=== PATIENT | female | born 1985 | race Caucasian/White ===

== ENCOUNTER 2017-03-25 15:45 | Day surgery (SDC) | payer BC ==
[~2017-03-25] VITALS: Ht 167.6 cm; Wt 68.0 kg
[2017-03-25 15:52] VITALS: BP 122/63; PULSE 92; RESP 18; TEMP 98.2; O2SAT 99
[2017-03-25] MEDS ORDERED: SODIUM CHLOR 0.9% 1000 ML INJ 1,000 ML IV ONE (16:15)
--- NOTE | 2017-03-25 16:15 | PD ---
HPI Chief Complaint: Foreign Body Time Seen by Provider: 16:07 Travel History International Travel<30 days: No Contact w/Intl Traveler<30days: No Traveled to known affect area: No History of Present Illness HPI ABOUT 2HRS AGO PATIENT WAS EATING LARGE PIECE OF STEAK BOLUS AND APPARENTLY BECAME STUCK, POINTS TO STERNAL NOTCH LOCATION OF WHERE SHE FEELS THE PRESSURE, HAS TO CONTINUOUSLY SPIT BECAUSE SHE CANNOT SWALLOW HER OWN SECRETIONS. DENIES ANY CHEST PAIN DENIES ANY DRUG ALELRGY, DENIES ANY MAJOR MEDICAL H/O EXCEPT ESOPHAGITIS DIAGNOSED WITH ENDOSCOPY THAT SHE HAD DONE A COUPLE OF YEARS BEFORE. THIS IS HER FIRST EPISODE, PATIENT ATTEMPTED TO SELF INDUCED EMESIS WHICH DID NOT CAUSE ANY RELIEF WHATSOEVER PFSH Past Medical History Medical History: Denies Significant Hx Diminished Hearing: No Immunizations Current: No Tetanus Vaccination: < 5 Years Influenza Vaccination: No ?: Not LMP: 03-20-17 Past Surgical History Surgical History: No Previous Surgery Social History Alcohol Use: No Tobacco Use: No Substance Use: No Allergies-Medications (Allergen,Severity, Reaction): Coded Allergies: Egg Allergy (Verified Adverse Reaction, Unknown, NAUSEA, 03/25/17) Reported Meds & Prescriptions Reported Meds & Active Scripts Active No Active Prescriptions or Reported Medications Review of Systems Except as stated in HPI: all other systems reviewed are Neg Gastrointestinal: Positive: Dysphagia Physical Exam Narrative GENERAL: SKIN: Warm and dry. HEAD: Atraumatic. Normocephalic. EYES: Pupils equal and round. No scleral icterus. No injection or drainage. ENT: No nasal bleeding or discharge. Mucous membranes pink and moist. NOT TOLERATING HER OWN SECRETIONS NECK: Trachea midline. No JVD. NO STRIDOR CARDIOVASCULAR: Regular rate and rhythm. RESPIRATORY: No accessory muscle use. Clear to auscultation. Breath sounds equal bilaterally. NO WHEEZING AND NO PALPABLE CREPITUS GASTROINTESTINAL: Abdomen soft, non-tender, nondistended. MUSCULOSKELETAL: Extremities without clubbing, cyanosis, or edema. No obvious deformities. NEUROLOGICAL: Awake and alert. No obvious cranial nerve deficits. Motor grossly within normal limits. Five out of 5 muscle strength in the arms and legs. Normal speech. PSYCHIATRIC: Appropriate mood and affect; insight and judgment normal. Data Data Last Documented VS Vital Signs Date Time Temp Pulse Resp B/P Pulse Ox O2 Delivery O2 Flow Rate FiO2 03/25/17 15:52 98.2 92 18 122/63 99 Orders Complete Blood Count With Diff (03/25/17 16:15) Comprehensive Metabolic Panel (03/25/17 16:15) Iv Access Insert/Monitor (03/25/17 16:15) Sodium Chlor 0.9% 1000 Ml Inj (Ns 1000 M (03/25/17 16:15) Prothrombin Time / Inr (Pt) (03/25/17 16:16) Act Partial Throm Time (Ptt) (03/25/17 16:16) Soft Tissue Neck (03/25/17 ) Chest, Single Ap (03/25/17 ) MDM Medical Decision Making Medical Screen Exam Complete: Yes Emergency Medical Condition: Yes Medical Record Reviewed: Yes Differential Diagnosis EPIGLOTITIS V CRICOPHARYNGEUS ESOPHAGEAL OBSTRUCTION V PNEUMOMEDIASTINUM Narrative Course IMMEDIATELY AFTER SEEING PATIENT CALL TO GI DUE TO INABILITY TO HANDLE SALIVARY SECRETIONS SUGGESTION FULL OBSTRUCTION, NO AIRWAY/BREATHING/CIRCULATORY DYSFUNCTION AT THIS POINT BASED ON EXAMINATION. Physician Communication Physician Communication DISCUSSED CASE FULLY WITH DR DE LA ROSA (GI) WHO WILL TAKE ON CASE AND ATTEMPT TO REMOVE VIA GI SUITE/ENDOSCOPY Diagnosis Primary Impression: ESOPHAGEAL FOOD BOLUS REQUIRING ENDOSCOPIC REMOVAL Scripts No Active Prescriptions or Reported Meds Bar Ambrocio MD Mar 25, 2017 16:15
[2017-03-25 16:31] LABS: AUTOMATED NEUTROPHIL # 4.8 TH/MM3 (1.8-7.7); BASOPHIL # 0.1 TH/MM3 (0-0.2); BASOPHIL % 1.8 % (0.0-2.0); EOSINOPHIL # 0.2 TH/MM3 (0-0.4); HEMATOCRIT 39.6 % (35.0-46.0); HEMO FLAGS DIFF FINAL; LYMPH % 25.7 % (9.0-44.0); MEAN CELL VOLUME 87.1 FL (80.0-100.0); MEAN CORPUSCULAR HEMOGLOBIN 30.4 PG (27.0-34.0); MEAN CORPUSCULAR HGB CONC 34.9 % (32.0-36.0); MONO % 6.5 % (0.0-8.0); PLATELET COUNT 275 TH/MM3 (150-450); RED BLOOD COUNT 4.55 MIL/MM3 (4.00-5.30); RED CELL DISTRIBUTION WIDTH 11.7 % (11.6-17.2); WHITE BLOOD COUNT 7.6 TH/MM3 (4.0-11.0)
[2017-03-25 16:38] LABS: CHLORIDE 108 MEQ/L (98-107); POTASSIUM 3.7 MEQ/L (3.5-5.1); SODIUM (NA) 144 MEQ/L (136-145)
[2017-03-25 16:43] LABS: ANION GAP 8 MEQ/L (5-15); APTT (PATIENT) 26.4 SEC (24.3-30.1); BICARBONATE 28.2 MEQ/L (21.0-32.0); BLOOD UREA NITROGEN 11 MG/DL (7-18); PROTHROMBIN TIME - PATIENT 10.7 SEC (9.8-11.6)
[2017-03-25] MEDS ORDERED: GLUCAGON 1 MG/ML VIAL IV PUSH ONE (16:45)
[2017-03-25 16:46] LABS: ALT (GPT) 14 U/L (10-53); AST (GOT) 13 U/L (15-37); GLOMERULAR FILTRATION RATE 96 ML/MIN (>89)
[2017-03-25 16:48] LABS: TOTAL BILIRUBIN ADULT 0.5 MG/DL (0.2-1.0)
[2017-03-25 16:49] LABS: ALKALINE PHOSPHATASE 68 U/L (45-117)
[2017-03-25 16:59] VITALS: BP 121/64; PULSE 76; RESP 18; O2SAT 99
[2017-03-25] MEDS ORDERED: ONDANSETRON HCL 4 MG/2 ML VIAL IV PUSH ONE (17:00)
--- NOTE | 2017-03-25 17:10 | RADRPT ---
EXAM DATE/TIME: 03/25/2017 16:29 [facility] COMPARISON: No previous studies available for comparison. INDICATIONS : Foreign body. MEDICAL HISTORY : None. SURGICAL HISTORY : None. ENCOUNTER: Initial ACUITY: 1 day PAIN SCORE: 4/10 LOCATION: neck FINDINGS: No appreciable subluxation or soft tissue swelling is seen. CONCLUSION: Unremarkable limited study. Ashley Covarrubias MD on March 25, 2017 at 17:08 Board Certified Radiologist. This report was verified electronically.
--- NOTE | 2017-03-25 17:15 | RADRPT ---
EXAM DATE/TIME: 03/25/2017 16:27 [facility] COMPARISON: No previous studies available for comparison. INDICATIONS : Foreign body. MEDICAL HISTORY : None. SURGICAL HISTORY : None. ENCOUNTER: Initial ACUITY: 1 day PAIN SCORE: 4/10 LOCATION: Bilateral chest FINDINGS: The lungs are clear without infiltrate, nodule, or mass. There is no appreciable pleural effusion fo r technique. Heart and mediastinum are unremarkable. There is no evidence for a radiopaque foreign b khadar for technique. CONCLUSION: No acute cardiopulmonary disease. Ashley Covarrubias MD on March 25, 2017 at 17:13 Board Certified Radiologist. This report was verified electronically.
[2017-03-25 18:21] VITALS: BP 101/58; PULSE 79; RESP 22; TEMP 99; O2SAT 99
[2017-03-25 19:31] VITALS: BP 101/58; PULSE 79; RESP 22; TEMP 99; O2SAT 99
[2017-03-25] MEDS ORDERED: PROPOFOL 200 MG/20 ML AMP IV ONE (19:59)
--- NOTE | 2017-03-25 20:16 | GIPROC ---
[facility] [address] [facility]. [facility], [address] EGD WITH DILATION PROCEDURE REPORT EXAM DATE: 03/25/2017 PATIENT NAME: Laisha Granados MR#: [id number] BIRTHDATE: 1985 ATTENDING: Padmaja Mendes MD ORDER #: [id number] STEAMING CABINET TENDER: Carmela Styles and Madai Meyer STATUS: outpatient INDICATIONS: The patient is a 31 yr old female here for an EGD with dilation due to dysphagia foreign body in esophagus PROCEDURE PERFORMED: EGD w/ biopsy EGD w/ dilation of esophagus via guidewire MEDICATIONS: Per Anesthesia and None. TOPICAL ANESTHETIC: none CONSENT: The patient understands the risks and benefits of the procedure and understands that these risks include, but are not limited to: sedation, allergic reaction, infection, perforation and/or bleeding. Alternative means of evaluation and treatment include, among others: physical exam, x-rays, and/or surgical intervention. The patient elects to proceed with this endoscopic procedure. medical equipment was checked for proper function. Hand hygiene and appropriate measures for infection prevention was taken. After the risks, benefits and alternatives of the procedure were thoroughly explained, Informed consent was verified, confirmed and timeout was successfully executed by the treatment team. The patient was anesthetized with topical anesthesia and the Pentax EG-[id number] endoscope was introduced through the mouth and advanced to the second portion of the duodenum. The instrument was slowly withdrawn as the mucosa was fully examined. Duodenitis second portion-biopsy superficial ulcers antrum-biopsy stricture, esophagitis in distal esophagus-biopsy no foreign body seen. Dilation was performed at gastroesophageal junction. DILATOR: SIZE(S): RESISTANCE: HEME: APPEARANCE: Dilator: Savary over guidewire Size(s): 14,15 COMMENT: Retroflexed views revealed a hiatal hernia ADVERSE EVENTS: There were no complications. IMPRESSIONS: 1. Duodenitis second portion-biopsy superficial ulcers antrum-biopsy stricture, esophagitis in distal esophagus-biopsy no foreign body seen 2. Retroflexed views revealed a hiatal hernia RECOMMENDATIONS: 1. Await biopsy results. Biopsy results will not be ready for 7-10 days. If you don't hear from us in two weeks, call our office for biopsy results. 2. Anti-reflux regimen 3. Start PPI 4. Avoid NSAIDS 5. Soft diet no driving for 24 hrs chew food weel fu gi in 1-2 weeks pantoprazole 40 mg po bid REPEAT EXAM: EGD pending biopsy results Padmaja Mendes MD eSigned: Padmaja Mendes MD 03/25/2017 8:15 PM cc: PATIENT NAME: Laisha Granados Ever MR#: [id number]
[2017-03-25] MEDS ORDERED: fentaNYL CITRATE 250 MCG/5 ML AMP ONE (20:32)
[2017-03-25] MEDS ORDERED: MIDAZOLAM HCL 2 MG/2 ML VIAL ONE (20:32)
[2017-03-25] MEDS ORDERED: PANT40TA3 PO (21:00)
[2017-03-25] MEDS ORDERED: DO NOT ADM ANY ANTICOAGULANT DRUGS PRN (21:15)
[2017-03-25 21:24] VITALS: BP 110/60; PULSE 80; RESP 16; TEMP 98.9; O2SAT 97
[2017-03-25] MEDS ORDERED: PANTOPRAZOLE SOD 40 MG DELAYED RELEASE TAB PO SCH (22:00)
--- NOTE | 2017-03-26 08:20 | MB ---
cc: ALYSA VIEYRA M.D.,HALEIGH Simon MD DATE OF CONSULTATION 03/25/[address] Haleigh Ambrocio REASON FOR CONSULTATION Dysphagia, foreign body impaction HISTORY Ms. Granados is a very pleasant 31-year-old lady who came to the emergency room with complaints of inability to swallow her saliva after she choked on a piece of steak. While in the emergency room, she was unable to swallow her secretions. She was given some muscle relaxant. She had some vomiting and she stated that afterwards she felt the food bolus impaction pass. She was transferred here to the [facility] for an endoscopy with possible dilatation and possible foreign body removal if any residual left. The patient reports having episodes of dysphagia and food bolus impaction on and off for a long time. She actually never had to go to the emergency room ,she had a similar episode four years ago which was severe enough, but resolved on its own. She had an endoscopy prior to that event and she was told she had signs of reflux and was prescribed a PPI which she took for a while, not taking currently. Denies any weight loss, melena, hematemesis or hematochezia. PAST MEDICAL HISTORY Reflux, otherwise negative. PAST SURGICAL HISTORY None MEDICATIONS None SOCIAL HISTORY She denies any smoking, drinking or drug use. ALLERGIES EGGS REVIEW OF SYSTEMS She denies any fever, chills, weight loss or weight gain. ENT: No alteration in baseline hearing or visual acuity. PULMONARY: Denies any chest pain, shortness of breath. GASTROINTESTINAL: As above. GENITOURINARY: Denies dysuria or hematuria. HEMATOLOGY: No history of anemia or bleeding disorder. SKIN: No alteration in baseline skin lesion. NEUROLOGIC: No history of TIA or CVA kind of symptoms. CLINICAL EXAM She is sitting comfortably in bed in no acute distress. VITAL SIGNS: Her temperature is 99, pulse is 79, respiration 22, blood pressure 101/58. HEAD, EYES, EARS, NOSE, AND THROAT: PERRLA. NECK: No JVD noted. No lymphadenopathy. CHEST: Clear to auscultation and palpation. CARDIOVASCULAR: S1 and S2. No murmur. ABDOMEN: Soft and nontender. Bowel sounds are present. COMPUTER PROGRAMMER ANALYST: Awake, alert, oriented x3. No focal signs identified. LABORATORY DATA Normal CBC. PT/INR normal. Her CMP normal. She had a soft tissue of the neck which was essentially negative. IMPRESSION Ms. Granados is a very pleasant 31-year-old lady with dysphagia after eating steak, most likely foreign body impaction, recurrent episodes of food bolus impaction mostly likely esophagitis, rule out eosinophilic esophagitis versus stricture secondary to reflux. RECOMMENDATIONS Upper endoscopy with possible dilatation. A foreign body removal will be scheduled as soon as possible. The risks and benefits were discussed with the patient and she is agreeing with it. She may have to have someone drive her home after the procedure is done. Thank you again. We will continue to follow the patient along with you. MD YESICA Coughlin/DEB /9:37 PM /8:07 AM TIGRE
== END 2017-03-25 21:25 | disposition home or self-care (01) ==
LOC: PHEFT 15:45 → HSDC 18:17
PROVIDERS: ATTEND Emergency Medicine
DX: K22.2 Esophageal obstruction (principal); K25.9 Gastric ulcer, unspecified as acute or chronic, without hemorrhage or perforation; K20.9 Esophagitis, unspecified; K29.80 Duodenitis without bleeding; K44.9 Diaphragmatic hernia without obstruction or gangrene
CPT/HCPCS: 43239; 43248; 70360; 71010; 80053; 84703; 85025; 85610; 85730; 88305; 88312; 99285; C1769; J1610; J2250; J2405; J3010; J7030